=== PATIENT | female | born 1995 | race African-American/Black ===

== ENCOUNTER 2022-01-26 13:34 | Observation (INO) | payer BC ==
[~2022-01-26] VITALS: Ht 167.6 cm; Wt 69.4 kg
[2022-01-26] MEDS ORDERED: TERBUTALINE SULFATE 1 MG/ML VIAL SUBCUT PRN (15:00)
[2022-01-26 15:17] LABS: BILIRUBIN,URINE NEGATIVE (NEGATIVE); BLOOD, URINE NEGATIVE (NEGATIVE); CLARITY/URINE CLEAR (CLEAR); COLOR,URINE YELLOW (YELLOW); GLUCOSE,URINE NEGATIVE (NEGATIVE); KETONES,URINE NEGATIVE (NEGATIVE); LEUKOCYTE ESTERASE ,URINE 1+ (NEGATIVE); NITRITE, URINE NEGATIVE (NEGATIVE); PH,URINE 6.5 (5.0-8.0); PROTEIN URINE NEGATIVE (NEGATIVE); UROBILINOGEN,URINE 0.2 (0.2-1.0)
[2022-01-26 15:22] LABS: BASOPHILS # (AUTO) 0.1 K/uL (0.0-0.2); BASOPHILS % (AUTO) 0.3 % (0.0-2.0); EOSINOPHILS # (AUTO) 0.2 K/uL (0.0-0.4); EOSINOPHILS % (AUTO) 0.8 % (0.0-4.0); HEMATOCRIT 34.7 % (36-48); HEMOGLOBIN 11.5 g/dL (12.0-16.0); MEAN CORPUSCULAR HEMOGLOBIN 29 pg (27-31); MEAN CORPUSCULAR HGB CONC 33 % (32-36); MEAN CORPUSCULAR VOLUME 88 fL (79.0-98.0); MONOCYTES # (AUTO) 1.1 K/uL (0.0-1.0); MONOCYTES % (AUTO) 5.9 % (1.7-9.3); PLATELET COUNT (AUTO) 281 K/uL (130-430); RED BLOOD CELL COUNT(AUTO) 3.95 MIL/uL (4.2-6.2); RED CELL DISTRIBUTION WIDTH 13.6 % (9.0-15.0); WHITE BLOOD COUNT (AUTO) 18.3 K/uL (4.8-10.8)
[2022-01-26 15:29] LABS: BARBITURATE, URINE NEGATIVE (NEG <=200); BENZODIAZEPINE, URINE NEGATIVE (NEG <=150); CANNABINOID, URINE NEGATIVE (NEG <=50); COCAINE, URINE NEGATIVE (NEG <=150); METHAMPHETAMINES SCREEN,URINE NEGATIVE (NEG <=500); OPIATE, URINE NEGATIVE (NEG <=100); PHENCYCLIDINE SCREEN,URINE NEGATIVE (NEG <=25); URINE AMPHETAMINE NEGATIVE (NEG <=500); URINE METHADONE NEGATIVE (NEG <=200); URINE OXYCODONE SCREEN NEGATIVE (NEG <=100)
[2022-01-26 15:30] LABS: UR TRICYCLIC ANTIDEPRESSANTS NEGATIVE (NEG <=300); URINE PROPOXYPHENE SCREEN NEGATIVE (NEG <=300)
[2022-01-26 15:36] LABS: BACTERIA,URINE None Seen /HPF (None Seen); RBC,URINE 0-3 /HPF (0-3); WBC,URINE 0-3 /HPF (0-3)
[2022-01-26] MEDS ORDERED: cephALEXin 500 MG CAPSULE PO ONE (16:00)
[2022-01-26 17:01] LABS: MUCUS,URINE None Seen /LPF (None Seen)
== END 2022-01-26 16:30 | disposition home or self-care (01) ==
LOC: SPU 13:34
PROVIDERS: ADMIT Specialist; ATTEND Specialist
DX: O62.9 Abnormality of forces of labor, unspecified (principal); Z3A.29 29 weeks gestation of pregnancy
CPT/HCPCS: 36415; 59899; 80307; 81000; 85025; 96372; G0378; J3105

== ENCOUNTER 2022-03-24 12:21 | Inpatient (IN) | payer BC ==
[~2022-03-24] VITALS: Ht 167.6 cm; Wt 73.9 kg
[2022-03-24] MEDS: LR 1,000 ML IV SCH ×2 (06:15→07:51)
[2022-03-24] MEDS ORDERED: OXYTOCIN/0.9 % SODIUM CHLORIDE 1,000 ML IV SCH (13:15)
[2022-03-24 14:01] LABS: BASOPHILS % (AUTO) 0.3 % (0.0-2.0); EOSINOPHILS # (AUTO) 0.1 K/uL (0.0-0.4); EOSINOPHILS % (AUTO) 0.6 % (0.0-4.0); HEMATOCRIT 33.9 % (36-48); LYMPHOCYTES # (AUTO) 2.2 K/uL (1.0-5.5); LYMPHOCYTES % (AUTO) 11.6 % (20.5-51.5); MEAN CORPUSCULAR HEMOGLOBIN 27 pg (27-31); MEAN CORPUSCULAR HGB CONC 32 % (32-36); MEAN CORPUSCULAR VOLUME 83 fL (79.0-98.0); MONOCYTES # (AUTO) 1.2 K/uL (0.0-1.0); MONOCYTES % (AUTO) 6.7 % (1.7-9.3); NEUTROPHILS # (AUTO) 15.1 K/uL (1.8-7.7); NEUTROPHILS % (AUTO) 80.8 % (40.0-70.0); PLATELET COUNT (AUTO) 216 K/uL (130-430); RED BLOOD CELL COUNT(AUTO) 4.07 MIL/uL (4.2-6.2); RED CELL DISTRIBUTION WIDTH 14.5 % (9.0-15.0); WHITE BLOOD COUNT (AUTO) 18.7 K/uL (4.8-10.8)
[2022-03-24 16:38] VITALS: BP_SYST 116
[2022-03-24] MEDS ORDERED: DINOPROSTONE 10 MG SUPP VG ONE (17:45)
[2022-03-25] MEDS: NALBUPHINE HCL 10 MG/ML AMP IVP PRN ×2 (00:29→07:51)
[2022-03-25] MEDS ORDERED: fentaNYL CITRATE/PF 100 MCG/2 ML AMP ONE (12:05)
[2022-03-25] MEDS ORDERED: ROPIVACAINE HCL/PF 0.2% 200 ML ONE (12:05)
[2022-03-25] MEDS: LR 1,000 ML IV SCH (14:17)
[2022-03-25] MEDS ORDERED: LR 500 ML IV ONE (14:45)
[2022-03-25] MEDS ORDERED: FENT2mCg/mL-ROPIVA0.2%/NS EPID 200 ML EP SCH (14:45)
[2022-03-25] MEDS ORDERED: ePHEDrine sulfate 50 MG/ML VIAL IVP PRN (14:45)
[2022-03-25] MEDS ORDERED: MEASLES,MUMPS&RUBELLA VACC/PF 12500 UNIT/0.5 ML VIAL SUBQ PRN (15:00)
[2022-03-25] MEDS ORDERED: DERMOPLAST SPRAY TP PRN (15:00)
[2022-03-25] MEDS ORDERED: WITCH HAZEL LEAF 1 MED.PAD MED.PAD TP PRN (15:00)
[2022-03-25] MEDS ORDERED: HYDROCORTISONE 0.5% CREAM 28.4 GM CREAM.GM. TP PRN (15:00)
[2022-03-25] MEDS ORDERED: NALOXONE HCL 0.4 MG/ML AMP (NARCAN) IVP PRN (15:00)
[2022-03-25] MEDS ORDERED: METHYLERGONOVINE MALEATE 0.2 MG TABLET PO PRN (15:00)
[2022-03-25] MEDS ORDERED: ANUSOL 1 EA SUPP.RECT (PREPARATION H) RC PRN (15:00)
[2022-03-25] MEDS ORDERED: HYDROcodone/ACETAMIN 5-325 MG TAB (NORCO/ VICODIN) PO PRN (15:00)
[2022-03-25] MEDS ORDERED: DIPH-TET-PERTUS Vaccine 0.5 ML VIAL (ADACEL) I.M. PRN (15:00)
[2022-03-25] MEDS ORDERED: OXYTOCIN/0.9 % SODIUM CHLORIDE 1,000 ML IV SCH (15:00)
[2022-03-25] MEDS ORDERED: OXYCODONE/ACETAMINOPHEN 5-325 TABLET PO PRN (15:00)
[2022-03-25] MEDS ORDERED: LANOLIN 7 GM OINT. TP PRN (15:00)
[2022-03-25] MEDS ORDERED: OXYTOCIN/0.9 % SODIUM CHLORIDE 1,000 ML IV ONE (15:00)
[2022-03-25] MEDS ORDERED: RHO(D) IMMUNE GLOBULIN/MALTOSE 1500 UNITS/1.3 ML (WINHRO) IM PRN (15:00)
[2022-03-25] MEDS ORDERED: LIDOCAINE PF 1% 30ML(POUR BTL) INJ ONE (15:14)
[2022-03-25] MEDS ORDERED: LIGHT MINERAL OIL 10 ML VIAL MC ONE (15:14)
[2022-03-25] MEDS: OXYCODONE/ACETAMINOPHEN 5-325 TABLET PO PRN ×2 (17:17→23:33)
[2022-03-25] MEDS: IBUPROFEN 600 MG TABLET PO SCH ×2 (18:36→23:43)
[2022-03-25] MEDS ORDERED: SENNOSIDES/DOCUSATE SODIUM 1 TAB TABLET(SENOKOT-S) PO SCH (21:00)
[2022-03-25] MEDS ORDERED: ROPIVACAINE HCL/PF 0.2% 200 ML EP ONE (21:45)
[2022-03-25] MEDS: TEMAZEPAM 15 MG CAPSULE PO PRN ×2 (23:33→23:51)
[2022-03-26] MEDS: TEMAZEPAM 15 MG CAPSULE PO PRN (02:10)
[2022-03-26] MEDS: IBUPROFEN 600 MG TABLET PO SCH ×2 (02:39→09:57)
[2022-03-26] MEDS ORDERED: DOCUSATE SODIUM 100 MG CAPSULE PO SCH (09:00)
[2022-03-26 12:09] LABS: BASOPHILS # (AUTO) 0.1 K/uL (0.0-0.2); BASOPHILS % (AUTO) 0.4 % (0.0-2.0); EOSINOPHILS # (AUTO) 0.5 K/uL (0.0-0.4); EOSINOPHILS % (AUTO) 2.4 % (0.0-4.0); HEMATOCRIT 31.8 % (36-48); HEMOGLOBIN 10.2 g/dL (12.0-16.0); LYMPHOCYTES # (AUTO) 3.1 K/uL (1.0-5.5); LYMPHOCYTES % (AUTO) 15.8 % (20.5-51.5); MEAN CORPUSCULAR HEMOGLOBIN 27 pg (27-31); MEAN CORPUSCULAR HGB CONC 32 % (32-36); MEAN CORPUSCULAR VOLUME 84 fL (79.0-98.0); MONOCYTES # (AUTO) 1.6 K/uL (0.0-1.0); MONOCYTES % (AUTO) 8.2 % (1.7-9.3); NEUTROPHILS # (AUTO) 14.5 K/uL (1.8-7.7); NEUTROPHILS % (AUTO) 73.2 % (40.0-70.0); PLATELET COUNT (AUTO) 201 K/uL (130-430); RED BLOOD CELL COUNT(AUTO) 3.76 MIL/uL (4.2-6.2); RED CELL DISTRIBUTION WIDTH 14.5 % (9.0-15.0); WHITE BLOOD COUNT (AUTO) 19.8 K/uL (4.8-10.8)
[2022-03-26] MEDS ORDERED: TEMA15CA5 PO (15:17)
[2022-03-26] MEDS ORDERED: PERC10 PO (15:17)
[2022-03-28 20:06] LABS: FTA-Ab (T PALLIDUM) Non Reactive (Non Reactive)
== END 2022-03-26 16:35 | disposition home or self-care (01) | DRG 807 ==
LOC: OBSVTOIN 12:21 → SPU 12:21
PROVIDERS: ADMIT Specialist; ATTEND Specialist
PROC: 10E0XZZ Delivery of Products of Conception, External Approach (ICD-10-PCS; principal; 2022-03-25)
PROC: 0HQ9XZZ Repair Perineum Skin, External Approach (ICD-10-PCS; 2022-03-25)
PROC: 3E033VJ Introduction of Other Hormone into Peripheral Vein, Percutaneous Approach (ICD-10-PCS; 2022-03-25)
PROC: 3E0P7VZ Introduction of Hormone into Female Reproductive, Via Natural or Artificial Opening (ICD-10-PCS; 2022-03-25)
PROC: 3E0R3BZ Introduction of Anesthetic Agent into Spinal Canal, Percutaneous Approach (ICD-10-PCS; 2022-03-25)
PROC: 00HU33Z Insertion of Infusion Device into Spinal Canal, Percutaneous Approach (ICD-10-PCS; 2022-03-25)
DX: O41.03X0 Oligohydramnios, third trimester, not applicable or unspecified (principal); Z37.0 Single live birth; O70.0 First degree perineal laceration during delivery; Z20.822 Contact with and (suspected) exposure to COVID-19; Z3A.38 38 weeks gestation of pregnancy
CPT/HCPCS: 36415; 81002; 85025; 86592; 86780; 86886; 86900; 86901; 94760; J2001; J2300; J2590; J3010

== ENCOUNTER 2022-03-26 23:52 | Emergency (ER) | payer BC ==
[~2022-03-26] VITALS: Ht 167.6 cm; Wt 66.2 kg
[~2022-03-26 23:52] MED LIST: PERC10 PO; TEMA15CA5 PO
[2022-03-26 23:56] VITALS: BP_SYST 134
--- NOTE | 2022-03-26 23:59 | NUR ---
PATIENT JUST DELIVERED YESTERDAY AND WAS DISCHARGED WITH NO POST- PAIN MEDICATION, PATIENT C/O PAIN IN ABDOMEN, PELVIS AND WHEN SHE URINATES. NO OTHER SYMPTOMS AT THIS TIME.
[2022-03-27] MEDS ORDERED: ONDANSETRON HCL 4 MG/2 ML VIAL IVP ONE (00:30)
[2022-03-27] MEDS ORDERED: KETOROLAC TROMETHAMINE 30 MG VIAL IVP ONE (00:30)
[2022-03-27] MEDS ORDERED: MORPHINE 4 MG INJ. 4 MG/ML VIAL IVP ONE (00:30)
[2022-03-27] MEDS ORDERED: NACL 0.9% 1,000 ML IV ONE (00:30)
--- NOTE | 2022-03-27 00:45 | NUR ---
JONNY LOPEZ BIB W/C WITH TRIAGE NURSE. C/O LOWER ABD/ PELVIC PAIN. S/P VAG DELIVERY YESTERDAY. REPORT FROM TRIAGE NURSE.
--- NOTE | 2022-03-27 01:00 | NUR ---
PT REFUSED TO GET ON GUERCRESTED BUTTE ON BED #8. "I WANT TO LEAVE" "DON'T GIVE ME ATTITUDE" PT ADVISED BY DR. ERVIN, PT DECLINED ER MD/ STAFF HELP, PT REFUSES PAIN RELIEF MEDICATION." I WANT TO TALK TO MY OWN DOCTOR (OB)" PT SIGNED AMA FORM AND ESCORTED BY SECURITY FROM ROON #8 BY SECURITY TO LOBBY VIA W/C. WAITING FOR RETURN PHONE CALL FROM PMD/ OB PT VERBALIZES UNDERT\\STANDING
== END 2022-03-27 01:17 | disposition left against medical advice (07) ==
LOC: SED 23:52
DX: O90.89 Other complications of the puerperium, not elsewhere classified (principal)
CPT/HCPCS: 99281